=== PATIENT | male | born 1970 | race Caucasian/White ===

== ENCOUNTER 2016-05-23 19:50 | Emergency (ER) | payer BC ==
[~2016-05-23] VITALS: Ht 177.8 cm; Wt 109.8 kg
[~2016-05-23 19:50] MED LIST: PANT40TA PO; [UNRECOGNIZED DRUG - OTHER] PO
[2016-05-23 19:53] VITALS: TEMP 36.6; Ht 177.8 cm; Wt 109.8 kg
--- NOTE | 2016-05-23 20:09 | EMERGENCY ROOM VISIT NOTE ---
History Report prepared by Oneil: Trace Byrd Under the Supervision of: Dr. Tim De Anda M.D. First contact with patient: 19:57 Chief Complaint: REFERRED BY DOCTOR Stated Complaint: REFERRED BY DR History of Present Illness The patient is a 45 year old male who presents to the Emergency Room with complaints of episodes of right-sided chest pain that started earlier today. He was referred here by his primary care physician. The physician does not think the patient had any heart damage, but the physician thought that it was better for the patient to be seen here. The patient got an EKG at the office. He had his first episode when he was shoveling snow today. He describes the pain as a mild discomfort. Later today, the patient was walking around campus, and had another episode. He denies any arm pain, abdominal pain, shortness of breath, or leg swelling. The patient did note that he had a bit of chest pain over the past few days but he sometimes gets reflux so he associates that pain due to the reflux. He has a family history of heart attacks, but no person history or family history of blood clots. He has had no recent traveling. The patient does not smoke any tobacco. He has mild hyperlipidemia, but no hypertension. Source of History: patient Onset: Earlier today Position: chest (right) Symptom Intensity: mild discomfort Timing: other (episodes) Associated Symptoms: No SOB, No abdominal pain Note: Associated symptoms: Denies any arm pain or leg swelling. Review of Systems See HPI for pertinent positives & negatives. A total of 10 systems reviewed and were otherwise negative. Past Medical & Surgical Medical Problems: (1) HLD (hyperlipidemia) Family History FHx: cancer FHx: gallbladder disease FHx: heart disease Social History Smoking Status: Never Smoker Marital Status: Housing Status: lives with family Occupation Status: employed Current/Historical Medications Scheduled PRN Acetamin/Butalbital/Caffeine (Fioricet), 1 TAB PO DAILY PRN for Migraine Alprazolam (Xanax), 0.5 MG PO DAILY PRN for Anxiety Allergies Coded Allergies: Penicillins (Unverified Allergy, Unknown, NAUSEA, 05/23/16) Physical Exam Vital Signs Date Time Temp Pulse Resp B/P Pulse Ox O2 Delivery O2 Flow Rate FiO2 05/23/16 21:45 80 18 143/94 97 05/23/16 19:53 36.6 94 18 157/89 96 Room Air Physical Exam GENERAL: Patient is well appearing and in no acute distress. HEENT: No acute trauma, normocephalic atraumatic, mucous membranes moist, no nasal congestion, no scleral icterus. NECK: No stridor, no adenopathy, no meningismus, trachea is midline. LUNGS: No dyspnea. Clear to auscultation and equal bilaterally. No wheeze, no rhonchi. HEART: Regular rate and rhythm. No murmurs, rubs, gallops appreciated. ABDOMEN: Soft, nontender, bowel sounds positive, no masses appreciated, no peritonitis. BACK: No midline tenderness, no CVA tenderness EXTREMITIES: Normal motion all extremities, no cyanosis, no edema. NEUROLOGIC: Alert and oriented, no acute motor or sensory deficits, no focal weakness, cranial nerves grossly intact. SKIN: No rash, no jaundice, no diaphoresis. Medical Decision & Procedures ER Provider Diagnostic Interpretation: X ray results are stated below per my interpretation and the radiologist's interpretation. CHEST ONE VIEW PORTABLE CLINICAL HISTORY: Chest pain. COMPARISON STUDY: Chest radiograph July 01, 2011. FINDINGS: Lung volumes are at the lower limits of normal. This is unchanged. There is no consolidation. Pulmonary vascularity is normal. No pneumothorax or pleural effusion is identified. Cardiomediastinal silhouette is within normal limits. Cardiac size is at the upper limits of normal. IMPRESSION: No acute cardiopulmonary findings. Electronically signed by: Baljinder Shay M.D. 05/23/2016 8:23 PM Dictated Date/Time: 05/23/2016 8:23 PM Laboratory Results 05/23/16 20:16 Red Blood Count 5.64, Mean Corpuscular Volume 83.7, Mean Corpuscular Hemoglobin 31.0, Mean Corpuscular Hemoglobin Concent 37.1, Mean Platelet Volume 9.8, Neutrophils (%) (Auto) 54.3, Lymphocytes (%) (Auto) 34.3, Monocytes (%) (Auto) 8.3, Eosinophils (%) (Auto) 2.3, Basophils (%) (Auto) 0.3, Neutrophils # (Auto) 4.82, Lymphocytes # (Auto) 3.04, Monocytes # (Auto) 0.74, Eosinophils # (Auto) 0.20, Basophils # (Auto) 0.03 05/23/16 20:16 Test 05/23/16 20:16 White Blood Count 8.87 K/uL (4.8-10.8) Red Blood Count 5.64 M/uL (4.7-6.1) Hemoglobin 17.5 g/dL (14.0-18.0) Hematocrit 47.2 % (42-52) Mean Corpuscular Volume 83.7 fL (80-100) Mean Corpuscular Hemoglobin 31.0 pg (25-34) Mean Corpuscular Hemoglobin Concent 37.1 g/dl (32-36) Platelet Count 240 K/uL (130-400) Mean Platelet Volume 9.8 fL (7.4-10.4) Neutrophils (%) (Auto) 54.3 % Lymphocytes (%) (Auto) 34.3 % Monocytes (%) (Auto) 8.3 % Eosinophils (%) (Auto) 2.3 % Basophils (%) (Auto) 0.3 % Neutrophils # (Auto) 4.82 K/uL (1.4-6.5) Lymphocytes # (Auto) 3.04 K/uL (1.2-3.4) Monocytes # (Auto) 0.74 K/uL (0.11-0.59) Eosinophils # (Auto) 0.20 K/uL (0-0.5) Basophils # (Auto) 0.03 K/uL (0-0.2) RDW Standard Deviation 38.0 fL (36.4-46.3) RDW Coefficient of Variation 12.6 % (11.5-14.5) Immature Granulocyte % (Auto) 0.5 % Immature Granulocyte # (Auto) 0.04 K/uL (0.00-0.02) D-Dimer < 190 ug/L FEU (0-500) Anion Gap 11.0 mmol/L (3-11) Est Creatinine Clear Calc Drug Dose 128.5 ml/min Estimated GFR () 118.4 Estimated GFR (Non- 102.1 BUN/Creatinine Ratio 17.7 (10-20) Calcium Level 9.2 mg/dl (8.5-10.1) Total Creatine Kinase 104 U/L (39-308) Creatine Kinase MB 1.0 ng/ml (0.5-3.6) Creatine Kinase MB Ratio 1.0 (0-3.0) Troponin I < 0.015 ng/ml (0-0.045) Laboratory results as reviewed by me. ECG Indication: chest pain Rate (beats per minute): 84 Rhythm: normal sinus Findings: no acute ischemic change, no ectopy, other (RBBB) Comparison ECG Date: when compared to previous on August 02 2011, RBBB is new ED Course 1999: The patient was evaluated in room B8. A complete history and physical exam was performed. 2116: I reevaluated the patient and he is resting comfortably. The patient verbally expressed understanding and agreement of the treatment plan. The patient will be discharged. Medical Decision Differential: Cardiac Ischemia (STEMI, NSTEMI, Unstable Angina, etc), Aortic Dissection, Arrhythmia, Pulmonary Embolism, Pneumonia, Pneumothorax, MSK, Infectious, Pericarditis/Myocarditis, Esophageal Rupture, Gastrointestinal, amongst other pathologies entertained. 45 yr old male with no previous CAD history and notes normal stress testing within last 3 years sent over by PCP for troponin testing after right sided chest pain with exertion today. EKG with RBBB which patient states was previously told to him several years ago. Trop negative. Dimer negative thus not PE with no history nor risk factors. Discussed fact that Trop does not rule out possible unstable angina/acs, though with fact he has close follow up, already with stress test pending, he has no active pain, no risk factors, previous normal stress, and wishes to go home will defer further testing to PCP. He is stable and understands if worsening or other concerns RTED for further evaluation. Impression Primary Impression: Right-sided chest pain Scribe Attestation The scribe's documentation has been prepared under my direction and personally reviewed by me in its entirety. I confirm that the note above accurately reflects all work, treatment, procedures, and medical decision making performed by me. Departure Information Dispostion Home / Self-Care Forms HOME CARE DOCUMENTATION FORM, IMPORTANT VISIT INFORMATION, WORK / SCHOOL INSTRUCTIONS Patient Instructions Chest Pain - [facility], My [facility] Additional Instructions Return immediately or call 911 if increasing pain, chest pain at rest, passing out, difficulty breathing or other concerns.
--- NOTE | 2016-05-23 20:25 | DIAGNOSTIC IMAGING REPORT ---
CHEST ONE VIEW PORTABLE CLINICAL HISTORY: Chest pain. COMPARISON STUDY: Chest radiograph July 01, 2011. FINDINGS: Lung volumes are at the lower limits of normal. This is unchanged. There is no consolidation. Pulmonary vascularity is normal. No pneumothorax or pleural effusion is identified. Cardiomediastinal silhouette is within normal limits. Cardiac size is at the upper limits of normal. IMPRESSION: No acute cardiopulmonary findings. Electronically signed by: Baljinder Shay M.D. 05/23/2016 8:23 PM Dictated Date/Time: 05/23/2016 8:23 PM
[2016-05-23 20:33] LABS: BASO % 0.3 %; BASO ABS # 0.03 K/uL (0-0.2); COMPLETE YES; EOS % 2.3 %; HEMATOCRIT 47.2 % (42-52); IG% 0.5 %; LYMPH % 34.3 %; LYMPH ABS # 3.04 K/uL (1.2-3.4); MEAN CELL VOLUME 83.7 fL (80-100); MEAN CORPUSCULAR HGB CONC 37.1 g/dl (32-36); MEAN PLATELET VOLUME 9.8 fL (7.4-10.4); MONO % 8.3 %; NEUT % 54.3 %; PLATELET COUNT 240 K/uL (130-400); RED BLOOD COUNT 5.64 M/uL (4.7-6.1); WHITE BLOOD COUNT 8.87 K/uL (4.8-10.8)
[2016-05-23 21:09] LABS: BLOOD UREA NITROGEN 16 mg/dl (7-18); BUN/CREATININE RATIO 17.7 (10-20); CALCIUM 9.2 mg/dl (8.5-10.1); CARBON DIOXIDE 24 mmol/L (21-32); CHLORIDE 105 mmol/L (98-107); CREATININE 0.91 mg/dl (0.60-1.40); GLUCOSE 96 mg/dl (70-99); POTASSIUM 3.8 mmol/L (3.5-5.1); SODIUM 140 mmol/L (136-145)
[2016-05-23 21:45] VITALS: BP 143/94; PULSE 80; O2SAT 97
== END 2016-05-23 21:45 | disposition home or self-care (01) ==
LOC: C.EDB 19:51
DX: R07.9 Chest pain, unspecified (principal); I45.10 Unspecified right bundle-branch block; E78.5 Hyperlipidemia, unspecified; Z88.0 Allergy status to penicillin; Z80.9 Family history of malignant neoplasm, unspecified; Z83.79 Family history of other diseases of the digestive system; Z82.49 Family history of ischemic heart disease and other diseases of the circulatory system

== ENCOUNTER 2016-12-19 18:14 | Emergency (ER) | payer BC ==
[~2016-12-19] VITALS: Ht 177.8 cm; Wt 109.3 kg
[2016-12-19 18:33] VITALS: TEMP 36.7; Ht 177.8 cm; Wt 109.3 kg
[2016-12-19] MEDS ORDERED: RABIES VACCINE (IMOVAX) HUMAN DIPL CELL 2.5 INTER.UNIT/ML SYR IM. ONE (19:15)
[2016-12-19] MEDS ORDERED: RABIES IMMUNE GLOBULIN (HUMAN) 150 INTER.UNIT/ML 2 ML VIAL IM. ONE (19:15)
--- NOTE | 2016-12-19 19:38 | EMERGENCY ROOM VISIT NOTE ---
ED Visit Note First contact with patient: 19:14 CHIEF COMPLAINT: Exposure to bat HISTORY OF PRESENT ILLNESS: This 46-year-old male patient presents to the emergency department ambulatory. There is concern for rabies exposure as there was bat found in their house that was sliding around overnight while they were sleeping. He denies any known bite, scratch or exposure. REVIEW OF SYSTEMS: A 6 system review of systems was completed with positives and pertinent negatives listed in the HPI. ALLERGIES: Penicillin MEDICATIONS: See nursing notes PMH: Migraines, reflux. SOCIAL HISTORY: The patient lives locally with family. PHYSICAL EXAM: Vital Signs: Reviewed Nurse's notes, vital signs stable. GENERAL : This is a 46-year-old male, in no acute distress, well-developed, well- nourished. HEAD: Atraumatic, without temporal or scalp tenderness. EYES: PERRLA, EOMI, no discharge or injection. SKIN: There are no open areas. Capillary refill less than 2 seconds. NEUROLOGICAL: Alert and oriented to person place and time. Normal sensation to light and sharp touch. MUSCULOSKELETAL: Motor functions grossly intact of the arms and legs. Full range of motion. EMERGENCY DEPARTMENT COURSE: I examined the patient. The patient was given RIG 20 Units/kg. The patient was given Imovax 1ml IM. The patient was observed for 20 minutes with no reaction. The patient was discharged home in stable condition. DISCHARGE INSTRUCTIONS: Today is day 0. Return to the ER on days 3, 7, 14 for subsequent vaccinations. Return sooner or follow up with your family doctor for signs of infection (increased redness, discharge, fever) or for complications with the vaccine series. 12/22 12/26 9 Problem List Medical Problems: (1) HLD (hyperlipidemia) Status: Chronic Current/Historical Medications Scheduled PRN Acetamin/Butalbital/Caffeine (Fioricet), 1 TAB PO DAILY PRN for Migraine Alprazolam (Xanax), 0.5 MG PO DAILY PRN for Anxiety Ranitidine Hcl (Zantac), 150 MG PO DAILY PRN for PRN Allergies Coded Allergies: Penicillins (Unverified Allergy, Unknown, NAUSEA, 12/19/16) Vital Signs Date Time Temp Pulse Resp B/P (MAP) Pulse Ox O2 Delivery O2 Flow Rate FiO2 12/19/16 18:33 36.7 88 15 145/85 94 Room Air Medications Administered Medications (Trade) Dose Ordered Sig/Amparo Route Start Time Stop Time Status Last Admin Dose Admin Rabies Vaccine Human Diploid Cell (Imovax Rabies) 2.5 interunit ONCE ONCE IM. 12/19/16 19:15 12/19/16 19:16 DC 12/19/16 21:01 2.5 INTERUNIT Rabies Immune Globulin (Imogam Rabies Inj) 2,100 interunit ONCE ONCE IM. 12/19/16 19:15 12/19/16 19:16 DC 12/19/16 21:00 2,100 INTERUNIT Departure Information Impression Primary Impression: Need for post exposure prophylaxis for rabies Dispostion Home / Self-Care Condition GOOD Referrals Howie Cavanaugh M.D. (PCP) Patient Instructions My [facility], Rabies Immune Globulin human RIG solution for injection , Rabies Vaccine suspension for injection Additional Instructions Today is day 0. Return to the ER on days 3, 7, 14 for subsequent vaccinations. Return sooner or follow up with your family doctor for signs of infection (increased redness, discharge, fever) or for complications with the vaccine series. 12/22 12/26 01/02
[2016-12-19 21:16] VITALS: BP 140/78; PULSE 80; O2SAT 98
== END 2016-12-19 21:18 | disposition home or self-care (01) ==
LOC: C.EDB 18:15 → C.EDD 21:18
DX: Z20.3 Contact with and (suspected) exposure to rabies (principal); Z23 Encounter for immunization; K21.9 Gastro-esophageal reflux disease without esophagitis; E78.5 Hyperlipidemia, unspecified

== ENCOUNTER 2016-12-22 17:05 | Emergency (ER) | payer BC ==
[~2016-12-22] VITALS: Ht 177.8 cm; Wt 109.5 kg
[2016-12-22 17:08] VITALS: BP 147/84; PULSE 80; TEMP 36.9; O2SAT 95; Ht 177.8 cm; Wt 109.5 kg
[2016-12-22] MEDS ORDERED: RABIES VACCINE (IMOVAX) HUMAN DIPL CELL 2.5 INTER.UNIT/ML SYR IM. ONE (17:30)
--- NOTE | 2016-12-24 11:02 | EMERGENCY ROOM VISIT NOTE ---
ED Visit Note First contact with patient: 17:12 CHIEF COMPLAINT: Rabies immunization. HISTORY OF PRESENT ILLNESS: Mr. Spencer is a 46-year-old white male who ambulates into the ED accompanied by his daughter requesting the second of his rabies immunization after being exposed to a bat flying around his house at night. Patient reports he's had no reactions to his previous immunizations and he is feeling well today. He denies fevers, chills, sweats, headaches, neck pain, joint pain, shortness of breath, cough, upper respiratory tract symptoms, abdominal pain, nausea, vomiting. REVIEW OF SYSTEMS: As noted above in History of Present Illness. 8 body systems were reviewed with this patient and found to be negative unless noted above otherwise. PMH: Status post cholecystectomy, migraine headaches, gastric reflux. CURRENT MEDICATION: Medications Dose Route/Sig Max Daily Dose Days Date Category Zantac (Ranitidine HCl) 150 Mg Tab 150 Mg PO DAILY PRN 12/19/16 Reported Fioricet (Acetaminophen/Butalbital/Caffeine) 1 Ea Tab 1 Tab PO DAILY PRN 05/23/16 Reported Xanax (Alprazolam) 0.5 Mg Tab 0.5 Mg PO DAILY PRN 05/23/16 Reported ALLERGIES TO MEDICATION: Penicillin.. SOCIAL HISTORY: Patient is currently employed; he feels safe in his home environment; he denies tobacco use and admits to social alcohol use. PHYSICAL EXAM: Vital Signs: Date Time Temp Pulse Resp B/P (MAP) Pulse Ox O2 Delivery O2 Flow Rate FiO2 12/22/16 17:08 36.9 80 18 147/84 95 Room Air GENERAL: 46-year-old white male in no acute distress, nontoxic-appearing, afebrile and hemodynamically stable. NEUROLOGICAL: Awake, alert and oriented to person, place and time. Answering questions appropriately and following commands. EMERGENCY DEPARTMENT COURSE: Patient is assessed as noted above. Patient was given 2.5 units of rabies immunization IM. Patient was educated about today's findings and instructed on his treatment plan ; they verbalized understanding and agreement with this plan. CLINICAL IMPRESSION: Post exposure rabies prophylaxis. DISPOSITION: Patient discharged to home in stable condition accompanied by his family; prior to discharge he was reassessed and reported that he felt the same. PLAN: Patient was educated on symptoms of rabies and side effect of rabies immunizations. Patient was encouraged to continue current schedule for his immunizations. Parents were encouraged to return encouraged to return the ED for the rest of his immunizations, any symptoms of rabies or side effects of rabies immunizations.
== END 2016-12-22 17:57 | disposition home or self-care (01) ==
LOC: C.EDB 17:06 → C.EDD 17:57
DX: Z20.3 Contact with and (suspected) exposure to rabies (principal); Z23 Encounter for immunization; Z90.49 Acquired absence of other specified parts of digestive tract; K21.9 Gastro-esophageal reflux disease without esophagitis

== ENCOUNTER 2016-12-26 18:04 | Emergency (ER) | payer BC ==
[~2016-12-26] VITALS: Ht 177.8 cm; Wt 108.0 kg
[2016-12-26 18:10] VITALS: TEMP 36.7; Ht 177.8 cm; Wt 108.0 kg
[2016-12-26] MEDS ORDERED: RABIES VACCINE (IMOVAX) HUMAN DIPL CELL 2.5 INTER.UNIT/ML SYR IM. ONE (18:15)
--- NOTE | 2016-12-26 18:23 | EMERGENCY ROOM VISIT NOTE ---
ED Visit Note First contact with patient: 18:13 Chief Complaint: Rabies Return Visit History of Present Illness: This patient is a 46 year old male who presents to the Emergency Department via private vehicle for their 3rd Rabies Vaccination Injections. The patient reports that they had NO reaction to previous injection. Patient denies the development of any fevers, chills, sweats, or URI symptoms. Medications: Unchanged from previous visit. Allergies: Penicillin PMH: Unchanged from previous visit. SHx: Pt. lives locally ROS: All pertinent positive and negative review of systems are appropriately documented in the History of Present Illness. Physical Exam: VITAL SIGNS - Vital signs and Nursing Notes were reviewed. Hypertensive. He is to follow-up. GENERAL - 46, well-developed, well-nourished, and in no acute distress. SKIN - Without rashes or lesions. CARDIAC - RRR with normal S1 & S2. No murmurs, rubs, or gallops appreciated. RESPIRATORY - Clear to auscultation bilaterally. No wheezes, rales, or rhonchi appreciated. NEURO - Patient is A&Ox3 and communicates appropriately with the provider. ED Course: Previous ED visit note was reviewed by myself prior to patient evaluation. Patient reports no reaction to the previous injection(s). Patient received 2.5IU of Imovax intramuscularly. Patient was observed in the Emergency Department for greater than 20 minutes prior to discharge without signs of reaction. Patient was educated on worrisome symptoms for return visit to the Emergency Department. Patient discharged to home with the intent for follow-up in the Emergency Department as scheduled for the remainder of their injections. Impression: Rabies Prophylaxis Problem List Medical Problems: (1) HLD (hyperlipidemia) Status: Chronic Current/Historical Medications Scheduled PRN Acetamin/Butalbital/Caffeine (Fioricet), 1 TAB PO DAILY PRN for Migraine Alprazolam (Xanax), 0.5 MG PO DAILY PRN for Anxiety Ranitidine Hcl (Zantac), 150 MG PO DAILY PRN for Heartburn Allergies Coded Allergies: Penicillins (Unverified Allergy, Unknown, NAUSEA, 12/19/16) Vital Signs Date Time Temp Pulse Resp B/P (MAP) Pulse Ox O2 Delivery O2 Flow Rate FiO2 12/26/16 18:10 36.7 78 16 150/84 96 Room Air Departure Information Impression Primary Impression: Rabies, need for prophylactic vaccination against Dispostion Home / Self-Care Condition GOOD Referrals Howie Cavanaugh M.D. (PCP) Patient Instructions My [facility] Additional Instructions Discharge Instructions: You were seen in the Emergency Department today for your Rabies Prophylaxis Injection. You should continue to follow the Discharge Instructions outlined for you in your initial Emergency Department visit. Return jan 02 For pain or fever control, you can use the following [id number] medicines: - Regular strength (325mg/tab) Tylenol (acetaminophen) 2 tabs every 4-6 hours as needed. Do not exceed 12 tablets in a 24 hour period. Avoid taking more than 3 grams (3000 mg) of Tylenol per day. This includes any other sources of acetaminophen you may take on a regular basis. - Regular strength (200 mg/tab) Advil (ibuprofen) 1-2 tabs every 4-6 hours as needed. Do not exceed a dose of 3200 mg per day. Return to the emergency department if your symptoms worsen despite treatment course outlined above. It is recommended to follow-up with your family doctor regarding your elevated blood pressure here today.
[2016-12-26 18:48] VITALS: BP 150/84; PULSE 78; O2SAT 96
== END 2016-12-26 18:48 | disposition home or self-care (01) ==
LOC: C.EDB 18:05 → C.EDD 18:48
DX: Z20.3 Contact with and (suspected) exposure to rabies (principal); Z23 Encounter for immunization; E78.5 Hyperlipidemia, unspecified; Z79.899 Other long term (current) drug therapy

== ENCOUNTER 2017-01-02 15:09 | Emergency (ER) | payer BC ==
[~2017-01-02] VITALS: Ht 177.8 cm; Wt 109.3 kg
[2017-01-02 15:15] VITALS: BP 137/90; PULSE 77; TEMP 36.7; O2SAT 95; Ht 177.8 cm; Wt 109.3 kg
[2017-01-02] MEDS ORDERED: RABIES VACCINE (IMOVAX) HUMAN DIPL CELL 2.5 INTER.UNIT/ML SYR IM. ONE (15:45)
[2017-01-02] MEDS ORDERED: RANI150T3 PO (19:50)
[2017-01-02] MEDS ORDERED: FRCT/ PO (20:44)
[2017-01-02] MEDS ORDERED: ALPR-411 PO (20:44)
--- NOTE | 2017-01-03 19:02 | EMERGENCY ROOM VISIT NOTE ---
ED Visit Note First contact with patient: 15:20 Chief Complaint: I need my last rabies immunization. History of Present Illness: Mr. Spencer is a 46-year-old white male who ambulates into the ED accompanied by his daughter requesting the last of his rabies immunizations. He reports he's had no previous reactions from his previous immunizations and he is feeling well today and denies fevers, chills, sweats, skin eruptions, skin color changes, headache, dizziness, chest pain, shortness of breath, abdominal pain, nausea, vomiting, joint pain. Review of Systems: As noted above in history of present illness. 8 body systems were reviewed and found to be negative as noted above. Past Medical History: Dyslipidemia, migraine headaches, GERD. Current Medications: Medications Dose Route/Sig Max Daily Dose Days Date Category Zantac (Ranitidine HCl) 150 Mg Tab 150 Mg PO DAILY PRN 12/19/16 Reported Fioricet (Acetaminophen/Butalbital/Caffeine) 1 Ea Tab 1 Tab PO DAILY PRN 05/23/16 Reported Xanax (Alprazolam) 0.5 Mg Tab 0.5 Mg PO DAILY PRN 05/23/16 Reported Allergies to Medications: Penicillin. Social History: Patient is currently employed; he feels safe in his home environment. Physical Examination: Vital Signs: Date Time Temp Pulse Resp B/P (MAP) Pulse Ox O2 Delivery O2 Flow Rate FiO2 01/02/17 15:15 36.7 77 18 137/90 95 Room Air GENERAL: 46-year-old male in no acute distress, nontoxic-appearing, afebrile and hemodynamically stable. NEUROLOGICAL: Awake, alert and oriented to person, place and time. Answering questions appropriately and following commands. ED Course: Patient is assessed as noted above. Patient's medication list was reviewed. Patient was given 2.5 units of rabies vaccination IM. Patient was observed and had no reactions. Patient was educated about today's findings and instructed on his treatment plan ; he verbalized understanding and agreement with this plan. Clinical Impression: Rabies immunizations. Disposition: Patient discharged home in stable condition; prior to departure he was reassessed and subjectively reported he was feeling well and had no reactions to his shot. Plan: Patient was encouraged to follow-up with primary care provider return to the ED for any side effect of his medications or any new/concerning symptoms.
== END 2017-01-02 16:40 | disposition home or self-care (01) ==
LOC: C.EDB 15:12 → C.EDD 16:40
DX: Z23 Encounter for immunization (principal); Z20.3 Contact with and (suspected) exposure to rabies

== ENCOUNTER 2017-04-10 18:33 | Emergency (ER) | payer BC ==
[~2017-04-10] VITALS: Ht 177.8 cm; Wt 109.2 kg
[~2017-04-10 18:33] MED LIST changes: +ALPR-411 PO; +FRCT/ PO; -PANT40TA PO; +RANI150T3 PO; -[UNRECOGNIZED DRUG - OTHER] PO
[2017-04-10 18:37] VITALS: TEMP 36.7; Ht 177.8 cm; Wt 109.2 kg
--- NOTE | 2017-04-10 19:07 | EMERGENCY ROOM VISIT NOTE ---
ED Visit Note First contact with patient: 18:43 CHIEF COMPLAINT: Head injury HISTORY OF PRESENT ILLNESS: This 46-year-old male patient presented to the emergency department approximately 45 minutes after receiving a head injury when he hit his head into a cabinet door. The patient states immediately he began experiencing pain in the area. Over the next 30-45 minutes, he began experiencing increasing pain in the location of the injury. He states that he noticed that there was some bleeding. The patient states the pain then seemed to be moving to be more generalized, and he began feeling "off", so he decided to come to the emergency department for evaluation. There was no loss of consciousness. There has been no vomiting. The patient complains of a generalized headache which is improving. He rates this at 2/10 and dull. The patient denies loss of consciousness, nausea, vomiting, dizziness, confusion, visual disturbances, weakness, paresthesias. The patient complains of no neck pain. The patient has taken nothing for the pain. The patient denies bowel or bladder dysfunction. The patient denies any other injuries. He is not on blood thinners. REVIEW OF SYSTEMS: A 10 system review of systems was performed with positives and pertinent negatives listed in the history of present illness. All other systems were reviewed and are negative. ALLERGIES: Penicillin MEDICATIONS: Fioricet, Zantac PMH: Reflux, migraines SOCIAL HISTORY: Lives locally with family. He denies drug, alcohol, tobacco use. PHYSICAL EXAM: Vital Signs: Reviewed Nurse's notes, vital signs stable. GENERAL : This is a 46-year-old white male, in no acute distress, well-developed, well- nourished. NEURO: The patient is alert, oriented to person place and time, and coherent. Normal mini mental status exam. Negative Romberg and pronator drift. Cerebellar function intact. HEAD: Normocephalic. There is a small abrasion and mild swelling on the right lateral, superior aspect of the skull, just behind the hairline. SKIN: There is superficial, irregularly-shaped laceration as noted previously. There is no active bleeding at this time. The wound edges do not gape open with traction. There is no bruising, significant swelling, or erythema noted. EYES: Pupils are equal round and reactive to light and accommodation. EOMs are full and optic discs and fundi are normal. There is no swelling or discoloration of the tissue surrounding the eyes. EARS : External auditory canals clear without blood. NOSE: Patent without tenderness. No septal hematoma. FACE: No facial bone tenderness. NECK: Supple. There is no cervical spine tenderness. The patient does not have tenderness with movement of the neck. GCS 15. ED COURSE: I examined the patient. I discussed with the patient options including CT scan and imaging versus non-. The patient does not have any symptoms which are concerning for acute intracranial hemorrhage or significant trauma. The patient does have a contusion with very superficial abrasion noted on the right side of the head. This does not appear to require sutures or other intervention. I discussed precautions with the patient, and advised him when he may need to return to the emergency department. I discussed wound care instructions with the patient, and I encouraged him to follow up outpatient with his PCP. I did offer the patient Tylenol or Motrin to help with his pain, and he declines. Discharge instructions reviewed, and the patient was discharged home in good condition ambulatory. I attest that I have personally reviewed the patient's current medication list. Patient was found to have normal blood pressure on screening and does not require follow-up. DIFFERENTIAL DIAGNOSIS: Closed head injury, concussion, skull fracture, laceration, abrasion, intracranial hemorrhage, headache, migraine, and others DIAGNOSIS: Head contusion, abrasion Problem List Medical Problems: (1) HLD (hyperlipidemia) Status: Chronic Current/Historical Medications Scheduled PRN Acetamin/Butalbital/Caffeine (Fioricet), 1 TAB PO DAILY PRN for Migraine Alprazolam (Xanax), 0.5 MG PO DAILY PRN for Anxiety Ranitidine Hcl (Zantac), 150 MG PO DAILY PRN for Heartburn Allergies Coded Allergies: Penicillins (Unverified Allergy, Unknown, NAUSEA, 12/19/16) Vital Signs Date Time Temp Pulse Resp B/P (MAP) Pulse Ox O2 Delivery O2 Flow Rate FiO2 04/10/17 18:37 36.7 82 20 162/82 96 Room Air Departure Information Impression Primary Impression: Head contusion Additional Impression: Abrasion of head Dispostion Home / Self-Care Condition GOOD Referrals Howie Cavanaugh M.D. (PCP) Patient Instructions ED Head Injury Closed, My [facility] Additional Instructions You have been treated in the Emergency Department for a Closed Head Injury. For pain control, you can use the following [id number] medicines (if >12 yo): Ibuprofen(Motrin, Advil) may be used for fever or pain. Use 600mg every six hours as needed. Take with food. Avoid using more than 2400mg in a 24 hour period. Do not use 2400mg per day for more than three consecutive days without physician direction. Prolonged inappropriate use can lead to stomach upset or ulcers. (AND/OR) Acetaminophen(Tylenol) may be used for fever or pain. Use 1000mg every six hours as needed. Avoid using more than 3000mg in a 24 hour period. You should relax in a quiet, dark place for the rest of the day. Avoid any possible triggers including: cigarette smoke, caffeine, nicotine, chocolate, wine, beer, loud noises or music, or bright lights. You should schedule a follow-up appointment in 2-3 days with your Primary Care Provider or established Neurologist for further evaluation and treatment of your Headache. Use antibiotic ointment on the superficial wound on the head. You may wash it with soap and water, but do not scour over it. Keep the wound clean and dry until it heals. Return to the Emergency Department if your current symptoms worsen despite treatment course outlined above, or if you develop any of the following symptoms : intractable pain despite aforementioned treatment course, visual disturbances , loss of vision, unilateral weakness or facial drooping, slurring of speech, loss of coordination, or loss of consciousness. Problem Qualifiers Primary Impression: Head contusion Encounter type: initial encounter Contusion of head detail: scalp Qualified Codes: S00.03XA - Contusion of scalp, initial encounter Additional Impression: Abrasion of head Encounter type: initial encounter Qualified Codes: S00.91XA - Abrasion of unspecified part of head, initial encounter
[2017-04-10 19:16] VITALS: BP 155/92; PULSE 92; O2SAT 95
== END 2017-04-10 19:16 | disposition home or self-care (01) ==
LOC: C.EDB 18:34 → C.EDD 19:16
DX: S00.93XA Contusion of unspecified part of head, initial encounter (principal); S00.91XA Abrasion of unspecified part of head, initial encounter; W22.8XXA Striking against or struck by other objects, initial encounter; K21.9 Gastro-esophageal reflux disease without esophagitis; R40.2412 Glasgow coma scale score 13-15, at arrival to emergency department